=== PATIENT | female | born 1930 | race Asian ===

== ENCOUNTER 2017-09-20 05:41 | Day surgery (SDC) | payer MEDICARE ==
[~2017-09-20] VITALS: Ht 30.5 cm; Wt 0.5 kg
[2017-09-20] MEDS ORDERED: LACTATED RINGERS 1,000 ML IV SCH (06:45)
[2017-09-20] MEDS ORDERED: MIDAZOLAM HCL 2 MG/2 ML VIAL ONE ×2 (07:32→08:22)
[2017-09-20] MEDS ORDERED: PROPOFOL 200MG/20ML VIAL IV ONE (07:32)
[2017-09-20] MEDS ORDERED: LIDOCAINE HCL/PF 1% 10 MG/ML 5ML VIAL ONE (07:32)
[2017-09-20 07:33] LABS: BASOPHILS % 0.9 % (0.0-2.0); HEMOGLOBIN. 12.5 g/dL (12.0-16.0); LYMPHOCYTES % 19.1 % (20.0-50.0); MEAN CORPUSCULAR HEMOGLOBIN 32.2 pg (28.0-32.0); MEAN CORPUSCULAR VOLUME 92.8 fL (81.0-99.0); MEAN PLATELET VOLUME 7.4 fl (7.4-10.4); PLATELET 222 x1000/uL (130-400); RED BLOOD CELL COUNT 3.89 mill/uL (4.2-5.4); RED CELL DISTRIBUTION WIDTH 12.8 % (11.6-14.6)
[2017-09-20 07:40] LABS: CHLORIDE 99 mEq/L (98-107)
[2017-09-20] MEDS ORDERED: DIPHENHYDRAMINE 50MG/ML VIAL ONE (08:21)
[2017-09-20] MEDS ORDERED: LIDOCAINE HCL 2% 5ML SYRINGE IV ONE (08:33)
[2017-09-20] MEDS ORDERED: GENTAMICIN 0.3% OPTH OINT 3.5GM ONE (08:39)
[2017-09-20] MEDS ORDERED: SODIUM CHLORIDE 0.9% 1,000 ML IV ONE (08:51)
[2017-09-20] MEDS ORDERED: ONDANSETRON HCL 4MG/2ML VIAL IV PRN (09:00)
[2017-09-20] MEDS ORDERED: MULT-1146 PO (10:34)
[2017-09-20] MEDS ORDERED: AMLO10TA80 PO (10:34)
[2017-09-20] MEDS ORDERED: DONE5TAB7 PO (10:34)
[2017-09-20] MEDS ORDERED: CHLO25TA2 PO (10:34)
[2017-09-20] MEDS ORDERED: KDUR10 PO (10:34)
[2017-09-20] MEDS ORDERED: PROPOFOL 10MG/ML 100ML 100 ML IV ONE (11:50)
[2017-09-20] MEDS ORDERED: TETRACAINE 0.5% OPHTH DROPS 4ML ONE (16:43)
[2017-09-20] MEDS ORDERED: BALANCED SALT IRRIG SOLN 15ML ONE (16:43)
== END 2017-09-20 11:00 | disposition home or self-care (01) ==
LOC: OR 05:41
PROVIDERS: ATTEND Ophthalmology
DX: C44.119 Basal cell carcinoma of skin of left eyelid, including canthus (principal); J44.9 Chronic obstructive pulmonary disease, unspecified; F03.90 Unspecified dementia, unspecified severity, without behavioral disturbance, psychotic disturbance, mood disturbance, and anxiety; E87.6 Hypokalemia; I10 Essential (primary) hypertension; Z79.899 Other long term (current) drug therapy
CPT/HCPCS: 36415; 67810; 80048; 85025; 88305; 93005; J1200; J2250; J2704; J3490; J7120